=== PATIENT | female | born 1970 | race Caucasian/White ===

== ENCOUNTER → 2017-12-11 18:11 | Outpatient (CLI) | payer OTHER, SELFPAY ==
--- NOTE | 2017-12-11 | DI.MRI.S_ITS ---
PROCEDURE: MR KNEE LT WO CON INDICATIONS: ACUTE PAIN OF LEFT KNEE TECHNIQUE: Noncontrast sagittal PD fast spin echo and T2 fast spin echo with fat saturation, sagittal 3-D FLASH with fat saturation; coronal T1 spin echo and PD fast spin echo with fat saturation, and axial PD fast spin echo with fat saturation through the knee. COMPARISON: None. FINDINGS: Image quality: Excellent. Menisci: The medial and lateral menisci demonstrate abnormal morphology and internal signal with a horizontally oriented nondisplaced meniscal tears extending to the meniscal articular surface at the posterior horn of the medial meniscus and at the anterior horn of the lateral meniscus. The meniscal root ligaments appear intact. Cruciate ligaments: The anterior and posterior cruciate ligaments appear intact. Medial structures: The medial collateral ligament appears intact. The posterior oblique ligament, semimembranosus tendon insertions, oblique popliteal ligament, and meniscocapsular junction appear intact. Visualized portions of the pes anserinus tendons appear normal. No abnormal bursal fluid. Lateral structures: The lateral collateral ligament, long and short heads of the biceps femoris tendon appear intact. The popliteus tendon appears normal; the popliteofibular ligament appears intact. The posterosuperior and anteroinferior popliteomeniscal fascicles appear intact. The arcuate and fabellofibular ligaments appear intact, on either side of the lateral inferior geniculate artery. Iliotibial band appears normal. Mild edema is present at the lateral border of the lateral femoral condyle without associated ligamentous injury. Anterior structures: The quadriceps and patellar tendons appear intact. Patellar alignment is normal. No femoral trochlear dysplasia or ventral trochlear prominence. No edema in the infrapatellar fat pad. Bones and cartilage: No bone marrow contusions or fractures. The cartilage of the medial and lateral femorotibial compartments, as well as the patellofemoral compartment, appears only minimally reduced in thickness. Joint space: There is a mild to moderate excess of knee joint fluid. No Porter's cyst. Normal appearing synovial plicae are incidentally noted. IMPRESSION: Wide nondisplaced medial and lateral meniscal tears are present, involving the anterior horn of the lateral meniscus and the posterior horn of the medial meniscus, with secondary mild to moderate knee joint effusion. No ligamentous trauma found. Dictated by: Efra Fregoso M.D. on 12/14/2017 at 9:35 Approved by: Efra Fregoso M.D. on 12/14/2017 at 9:41
== END ==
PROVIDERS: Visit Provider Orthopaedic Surgery
DX: S83.282A Other tear of lateral meniscus, current injury, left knee, initial encounter (principal); S83.242A Other tear of medial meniscus, current injury, left knee, initial encounter; M25.562 Pain in left knee; M25.462 Effusion, left knee
CPT/HCPCS: 73721

== ENCOUNTER → 2018-03-26 10:11 | Outpatient (CLI) | payer OTHER, SELFPAY ==
[2018-03-26 10:42] LABS: Add Manual Diff / Slide Review NO; Basophils Absolute Auto 0 /uL (0-100); Basophils Percent Auto 0.3 % (0-2); Eosinophils Absolute Auto 0 /uL (0-450); Eosinophils Percent Auto 0.8 % (2-4); Hemoglobin 14.8 g/dL (12.0-16.0); Lymphocytes Absolute Auto 1300 /uL (1100-4500); Lymphocytes Percent Auto 26.5 % (25-40); Mean Corpuscular HGB Conc 33.7 % (30-36); Mean Corpuscular Hemoglobin 30.8 PG (26-34); Mean Corpuscular Volume 91.3 fL (80-100); Monocytes Absolute Auto 500 /uL (0-900); Monocytes Percent Auto 9.8 % (3-14); Neutrophils Absolute Auto 3000 /uL (1500-7000); Neutrophils Percent Auto 62.6 % (50-75); Platelet Count 191 X10^3/uL (150-400); Red Blood Cell Count 4.81 X10^6/uL (4.0-5.2); Red Cell Distribution Width 12.7 % (11.6-14.8); White Blood Cell Count 4.8 X10^3/uL (4.5-11.0)
[2018-03-26 13:00] LABS: Alanine Aminotransferase 25 IU/L (9-52); Albumin 4.5 g/dL (3.5-5.0); Albumin Globulin Ratio 1.7 (1.0-2.8); Alkaline Phosphatase 49 U/L (38-126); Aspartate Aminotransferase 20 IU/L (14-36); BUN Creatinine Ratio 12.2 (6-22); Bilirubin Total 0.6 mg/dL (0.2-1.3); Blood Urea Nitrogen 11 mg/dL (7-17); Calcium 9.6 mg/dL (8.4-10.2); Carbon Dioxide 26 mmol/L (22-32); Chloride 103 mmol/L (98-107); Cholesterol 171 mg/dL (140-199); Estimated Glomerular Filt Rate > 60.0 mL/min (>60); Globulin 2.6 g/dL (1.7-4.1); Glucose 99 mg/dL (70-100); HDL Cholesterol 79 mg/dL (40-60); HEMOLYSIS < 15 (0-50); LDL Cholesterol Calculated 82 mg/dL (<100); Potassium 4.2 mmol/L (3.4-5.1); Sodium 139 mmol/L (137-145); Total Protein 7.1 g/dL (6.3-8.2); Triglycerides 51 mg/dL (35-150)
== END ==
PROVIDERS: Visit Provider Nurse Practitioner Family
DX: Z01.419 Encounter for gynecological examination (general) (routine) without abnormal findings (principal); N92.6 Irregular menstruation, unspecified
CPT/HCPCS: 36415; 80053; 80061; 83001; 84443; 85025

== ENCOUNTER → 2020-10-06 08:46 | Outpatient (CLI) | payer OTHER, SELFPAY ==
--- NOTE | 2020-10-06 | DI.MRI.S_ITS ---
PROCEDURE: MR KNEE LT WO CON INDICATIONS: PAIN IN LEFT KNEE TECHNIQUE: Noncontrast sagittal PD fast spin echo and T2 fast spin echo with fat saturation, sagittal 3-D FLASH with fat saturation; coronal T1 spin echo and PD fast spin echo with fat saturation, and axial PD fast spin echo with fat saturation through the knee. COMPARISON: [facility], CR, XR KNEE ARTHRITIC SERIES LT, 12/07/2017, 15:00. [facility], MR, MR KNEE LT WO CON, 12/11/2017, 18:21. FINDINGS: Image quality: Excellent. Menisci: Horizontal linear high T2 signal intensity within the posterior horn medial meniscus, demonstrating free edge and inferior articular surface extension is present, as before. Horizontally oriented linear high signal intensity within the anterior horn lateral meniscus is present, increased in prominence, demonstrating free edge extension, indicating horizontal tearing. There is new truncation of the free edge of the lateral meniscal body and anterior horn, indicating radial tearing. Cruciate ligaments: The anterior and posterior cruciate ligaments appear intact. Medial structures: The medial collateral ligament appears intact. Visualized portions of the pes anserinus tendons appear normal. No abnormal bursal fluid. Lateral structures: The lateral collateral ligament demonstrates mild T2 signal elevation at the femoral origin, new since the prior examination. The long and short heads of the biceps femoris tendon appear intact. The popliteus tendon appears normal. Iliotibial band appears normal. Anterior structures: The quadriceps and patellar tendons appear intact. Mild T2 signal elevation within the quadriceps and patellar tendons at the patellar insertion sites. Patellar alignment is normal. No femoral trochlear dysplasia or ventral trochlear prominence. Mild edema in the infrapatellar fat pad. Bones and cartilage: No acute bone marrow contusions or fractures there is mild articular surface irregularity of the mid weight-bearing portion of the medial femoral condyle, as before, consistent with remote fracture deformity.. Mild tricompartmental periarticular osteophyte formation. Moderate articular cartilage loss diffusely overlies the weight-bearing aspects of the medial femoral condyle and medial tibial plateau, as well as the weight-bearing aspects of the lateral femoral condyle and lateral tibial plateau. Articular cartilage fibrillation overlies the medial and lateral patellar facets. Joint space: There is a small knee joint effusion and a trace Porter's cyst. Normal appearing synovial plicae are incidentally noted. IMPRESSION: 1. Medial and lateral meniscal tearing as described above. 2. Tricompartmental osteoarthritis with associated articular cartilage loss. 3. Mild quadriceps and patellar tendinopathy. 4. Low-grade partial thickness lateral collateral ligament tear. 5. Knee joint effusion and Porter's cyst. Dictated by: Ofelia Guerrier M.D. on 10/08/2020 at 8:19 Approved by: Ofelia Guerrier M.D. on 10/08/2020 at 8:24
== END ==
PROVIDERS: Referring Provider Orthopaedic Surgery; Visit Provider Orthopaedic Surgery
DX: M25.562 Pain in left knee (principal); S83.242A Other tear of medial meniscus, current injury, left knee, initial encounter; S83.282A Other tear of lateral meniscus, current injury, left knee, initial encounter; S83.422A Sprain of lateral collateral ligament of left knee, initial encounter; M17.12 Unilateral primary osteoarthritis, left knee; M25.462 Effusion, left knee; M71.22 Synovial cyst of popliteal space [Baker], left knee
CPT/HCPCS: 73721

== ENCOUNTER → 2021-07-09 15:26 | Outpatient (CLI) | payer OTHER, SELFPAY ==
--- NOTE | 2021-07-09 | DI.MG.S_ITS ---
BILATERAL DIGITAL SCREENING MAMMOGRAM 3D/2D WITH CAD: 07/09/2021 CLINICAL: Routine screening. Baseline exam. No prior exams were available for comparison. The tissue of both breasts is heterogeneously dense. This may lower the sensitivity of mammography. Current study was also evaluated with a Computer Aided Detection (CAD) system. There is an irregular mass in the right breast at 12 o'clock anterior depth. There also is a focal asymmetry in the right breast at 4 o'clock posterior depth. There is a focal asymmetry in the left breast at 2 o'clock posterior depth. No other significant masses or calcifications are seen in either breast. IMPRESSION: INCOMPLETE: NEEDS ADDITIONAL IMAGING EVALUATION The irregular mass in the right breast at 12 o'clock anterior depth likely represents clustered cysts and is indeterminate. The focal asymmetry in the right breast at 4 o'clock posterior depth likely represents a cyst and is indeterminate. The focal asymmetry in the left breast at 2 o'clock posterior depth is indeterminate. A diagnostic mammogram and ultrasound is recommended. This exam was interpreted at Station ID: [id number]. NOTE: For mammograms, a report in lay terms will be sent to the patient. Approximately 15% of breast malignancies will not be visualized mammographically. In the management of a palpable breast mass, a negative mammogram must not discourage biopsy of a clinically suspicious lesion. Electronically Signed By: Alma lin/:07/10/2021 10:44:40 letter sent: Additional Imaging Needed ACR BI-RADS Category 0: Incomplete 3340F
== END ==
PROVIDERS: PCP Nurse Practitioner Family; Referring Provider Nurse Practitioner Family; Visit Provider Nurse Practitioner Family
DX: Z12.31 Encounter for screening mammogram for malignant neoplasm of breast (principal)
CPT/HCPCS: 77063; 77067

== ENCOUNTER → 2021-08-15 10:11 | Outpatient (CLI) | payer OTHER, SELFPAY ==
--- NOTE | 2021-08-15 | DI.MG.S_ITS ---
BILATERAL DIGITAL DIAGNOSTIC MAMMOGRAM 3D/2D: 08/15/2021 CLINICAL: Additional evaluation requested from prior study. Comparison is made [facility] The tissue of both breasts is heterogeneously dense. This may lower the sensitivity of mammography. There is a 1.6 cm mass in the right breast at 12 o'clock anterior depth. There also is a 0.6 cm focal asymmetry in the right breast at 4 o'clock posterior depth. There is a focal asymmetry in the left breast at 2 o'clock posterior depth. This is not seen in additional views. No other significant masses or calcifications are seen in either breast. IMPRESSION: INCOMPLETE: NEEDS ADDITIONAL IMAGING EVALUATION The 1.6 cm mass in the right breast at 12 o'clock anterior depth likely represents clustered cysts and is indeterminate. The 0.6 cm focal asymmetry in the right breast at 4 o'clock posterior depth likely represents a cyst and is indeterminate. A targeted ultrasound is recommended and will immediately follow. This exam was interpreted at Station ID: [id number]. NOTE: For mammograms, a report in lay terms will be sent to the patient. Approximately 15% of breast malignancies will not be visualized mammographically. In the management of a palpable breast mass, a negative mammogram must not discourage biopsy of a clinically suspicious lesion. Electronically Signed By: Yandel Langston M.D. slc/:08/15/2021 10:50:31 ACR BI-RADS Category 0: Incomplete 3340F
--- NOTE | 2021-08-15 | DI.US.S_ITS ---
LIMITED ULTRASOUND OF RIGHT BREAST: 08/15/2021 CLINICAL: Patient returns today to evaluate two focal asymmetries in the right breast. Comparison is made to exams dated: 08/15/2021 mammogram and 07/09/2021 mammogram - [facility]. Color flow and real-time ultrasound of the right breast 5 o'clock and 12 o'clock regions were performed. Reina scale images of the real-time examination were reviewed. There is a benign 1.6 cm x 1.6 cm x 0.8 cm cluster of oval cysts in the right breast at 12 o'clock anterior depth 2 cm from the nipple. This cluster of oval cysts is anechoic with posterior acoustic enhancement. This correlates with mammography findings. Color flow imaging demonstrates that there is no vascularity present. There also is a benign 0.5 cm x 0.4 cm x 0.2 cm oval cyst in the right breast at 5 o'clock posterior depth 1 cm from the nipple. This oval cyst is anechoic. This correlates with mammography findings. Color flow imaging demonstrates that there is no vascularity present. IMPRESSION: BENIGN There is no sonographic evidence of malignancy. The 1.6 cm cluster of oval cysts in the right breast at 12 o'clock anterior depth is benign. The 0.5 cm oval cyst in the right breast at 5 o'clock posterior depth is benign. A 1 year screening mammogram is recommended. Exam findings were conveyed to the patient. This exam was interpreted at Station ID: [id number]. Electronically Signed By: Yandel Langston M.D. [facility] [place]/:08/15/2021 11:13:36 Entry: - 08/16/2021 10:43:24 letter sent: Normal Exam Ultrasound BI-RADS: 2 Benign
== END ==
PROVIDERS: PCP Nurse Practitioner Family; Referring Provider Nurse Practitioner Family; Visit Provider Nurse Practitioner Family
DX: R92.8 Other abnormal and inconclusive findings on diagnostic imaging of breast (principal); N60.01 Solitary cyst of right breast
CPT/HCPCS: 76642; 77066; G0279

== ENCOUNTER 2024-06-04 18:52 | Emergency (ER) | payer OTHER, SELFPAY ==
[2024-06-04] VITALS (9 sets, daily range): BP systolic 143–185; BP diastolic 72–88; PULSE 66–79; RESP 16; TEMP 36.6; O2SAT 96–98; BMI 25.1
--- NOTE | 2024-06-04 19:02 | PC.NURSE ---
pt denies chest pain
--- NOTE | 2024-06-04 21:48 | ED.NECK ---
HPI - Neck Pain/Injury General Chief Complaint: Neck Pain/Injury Stated Complaint: WIC; Throbbing/Soreness in Carotid Time Seen by Provider: 06/04/24 19:18 Source: patient, RN notes reviewed and old records reviewed Mode of arrival: Ambulatory Limitations: no limitations History of Present Illness HPI Narrative: 53-year-old female on HRT with complaint of left throbbing sort of soreness of her neck. She states it has been going on for about a week. It has just been sort of a throbbing sensation it does sometimes resolve. She has not really noticed any swelling, no skin changes no redness. Does not really radiate into the jaw. She has not had any ear pain. Movement does not seem to affect it. Nothing really seems to make it better or worse. She notes she has had a migraine earlier in the week which was atypical but has had headaches before. 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 Patient states no fevers or chills. No chest pain or shortness of breath. No vision changes. No numbness, tingling or weakness. No difficulty with speech or movement. She was not had any nausea or vomiting. No other GI or urinary symptoms. Patient has not had cold or cough symptoms, no sore throat. States estrogen progesterone or her only daily medications. She denies any recent surgeries. No known drug allergies. No tobacco, occasional alcohol, no recreational drugs. Related Data Home Medications Medication Instructions Recorded Confirmed estradiol PO 01/15/19 01/15/19 progesterone micronized PO 01/15/19 01/15/19 Allergies Allergy/AdvReac Type Severity Reaction Status Date / Time No Known Drug Allergies Allergy Verified 06/04/24 18:56 Review of Systems Review of Systems ROS Unobtainable: All systems reviewed & are unremarkable except as noted in HPI and below Patient History Social History Smoking Status: Never smoker Smoking Status: Never smoker Exam Narrative Exam Narrative: GEN: well nourished, well appearing female, alert and oriented x 3, patient appears to be in mild distress. HEENT: Atraumatic, pupils are equal round reactive to light, extraocular movements are intact, nares are clear, TMs are clear with no fluid, there is no conjunctival pallor. Throat is clear without any exudates, erythema, tonsillar enlargement or uvular deviation, normal range of motion. Neck is nontender to touch, there was no warmth erythema. No palpable lymphadenopathy. Normal speech, no hoarseness. HEART: Regular rate and rhythm without murmur, clicks, rubs. No carotid bruits bilaterally, pulses are equal in upper extremities LUNGS:Lungs clear to auscultation, no wheezes, rales, crackles, chest moves symmetrically ABD:bowel sounds normal, soft, non-tender, no guarding, rebound, rigidity, no masses noted, no hepatosplenomegaly MSCL: Non-tender, no muscle atrophy, muscles strength 5/5 upper and lower extremities, full range of motion, normal gait NEURO:CN 2-12 intact, sensation normal Initial Vital Signs Initial Vital Signs: Vital Signs Temperature 97.9 F 06/04/24 18:56 Pulse Rate 79 06/04/24 18:56 Respiratory Rate 16 06/04/24 18:56 Blood Pressure 185/88 H 06/04/24 18:56 Pulse Oximetry 98 06/04/24 18:56 Oxygen Delivery Method Room Air 06/04/24 18:56 Course Orders Ordered: ED Orders 06/04/24 21:59 US carotid doppler BI Stat Vital Signs Vital signs: Vital Signs - 8 hr 06/04/24 22:40 06/04/24 22:40 06/04/24 23:00 Pulse Rate 71 Blood Pressure 145/83 H 143/77 H Pulse Oximetry 98 Oxygen Delivery Method 06/04/24 23:00 Pulse Rate 72 Blood Pressure Pulse Oximetry 97 Oxygen Delivery Method Room Air MDM - Neck Pain/Injury MDM Narrative Medical decision making narrative: 53-year-old female with complaint of throbbing and soreness and there carotid region of the left side of the neck x1 week. Patient has not had any upper respiratory symptoms, she was have any lymphadenopathy on exam, she was normal exam otherwise. No carotid bruits or other changes does note she had migraine type headache earlier in the week does not typically get these. She has not had any other new neurologic changes. Discussed with patient we will obtain carotid ultrasound we did discuss potentially obtaining CT imaging but discussed risks versus benefits of radiation exposure and felt we can inflammation of the needed with ultrasound. Reviewed imaging with the patient. She notes she had her cholesterol panel checked about 2 years ago at that time was normal. Does have follow up in place with primary care in June. Carotid ultrasound shows atherosclerotic plaques seen on both sides estimated agree internal carotid artery stenosis less than 50% arteries themselves are noted to be prominent widely patent no imaging explanation found for patient's presenting symptoms. No stenosis noted. Patient felt appropriate for discharge home follow up with primary care. Discussed return precautions. Discharge Plan Departure Patient Disposition: Home Clinical Impression: Neck pain Instructions: DI for Neck Pain Activity Restrictions/Additional Instructions: Your imaging today you have some atherosclerotic plaque there is less than 50%, follow up with your physician they may evaluate your cholesterol panel see if you need to be on a statin but otherwise has no major changes to your vessels in your neck. Please return if you have new or worsening changes. Prescriptions: No Action progesterone micronized PO estradiol PO Referrals: Melanie Nails ARNP [Primary Care Provider] - Stand Alone Forms: Patient Portal/API/Survey
--- NOTE | 2024-06-04 21:59 | DI.US.S_ITS ---
PROCEDURE: US CAROTID DOPPLER BI INDICATIONS: L throbbing, soreness x 1 week TECHNIQUE: Color and pulse Doppler interrogation was performed of both carotid systems, with image documentation and velocity measurements. COMPARISON: None. FINDINGS: Stenosis calculations are based on SRU (Society of Radiologists in Ultrasound) criteria. The flow velocities and the arterial waveforms are normal within both carotid arterial systems. Atherosclerotic plaque is seen on both sides. The estimated degree of internal carotid artery stenosis is less than 50%. The internal carotid arteries themselves are noted to be prominent and widely patent. Antegrade flow is confirmed within both vertebral arteries. IMPRESSION: No imaging explanation is found for this patient's presenting symptoms. No stenosis is seen. Dictated by: William Mora M.D. on 06/04/2024 at 21:57 Approved by: William Mora M.D. on 06/04/2024 at 21:58
== END 2024-06-04 23:18 | disposition home or self-care (01) ==
PROVIDERS: Emergency Provider Emergency Medicine; PCP Nurse Practitioner Family
DX: M54.2 Cervicalgia (principal)
CPT/HCPCS: 36415; 93880; 99283

== ENCOUNTER → 2024-07-24 07:15 | Outpatient (CLI) | payer OTHER, SELFPAY ==
--- NOTE | 2024-07-24 07:16 | DI.MRI.S_ITS ---
PROCEDURE: MR HEAD/BRAIN WO CON INDICATIONS: Worsening Headaches TECHNIQUE: Noncontrast axial T1 spin echo, axial T2 fast spin echo, sagittal and axial FLAIR, coronal T2 fast spin echo, axial gradient echo, axial diffusion and ADC through the brain. COMPARISON: None. FINDINGS: Image quality: Excellent. CSF Spaces: Basal cisterns are patent. No extra-axial fluid collections. Ventricles are normal in size and shape. Brain: No intracranial masses or hemorrhage. Reina/white matter interface is normal. Brainstem appears normal. Diffusion-weighted images demonstrate no acute infarct. No chronic ischemic insults. Normal intravascular flow voids are present. Skull and face: Calvarium has normal marrow signal. Orbits appear normal. Sinuses: Sinuses and mastoids are clear. IMPRESSION: No intracranial disease process. No abnormal intracranial mass or mass effect. No intracranial hemorrhage. Dictated by: Bindu Hoffman MD, PhD on 07/26/2024 at 9:23 Approved by: Bindu Hoffman MD, PhD on 07/26/2024 at 9:24
== END ==
PROVIDERS: PCP Student in an Organized Health Care Education/Training Program; Referring Provider Student in an Organized Health Care Education/Training Program; Visit Provider Student in an Organized Health Care Education/Training Program
DX: G43.909 Migraine, unspecified, not intractable, without status migrainosus (principal)
CPT/HCPCS: 70551

== ENCOUNTER → 2024-11-02 10:05 | Outpatient (CLI) | payer BC, SELFPAY | PROVIDERS: PCP Student in an Organized Health Care Education/Training Program; Referring Provider Student in an Organized Health Care Education/Training Program; Visit Provider Student in an Organized Health Care Education/Training Program | DX: Z13.6 Encounter for screening for cardiovascular disorders (principal); Z82.49 Family history of ischemic heart disease and other diseases of the circulatory system | CPT/HCPCS: 84443 ==